=== PATIENT | female | born 1955 | race American Indian/Alaskan Native ===

== ENCOUNTER 2018-09-18 15:30 | Emergency (ER) | payer OTHER ==
[2018-09-18 17:03] VITALS: BMI 25.7
[2018-09-18] MEDS ORDERED: Lidocaine 5% Patch TD STA (17:08)
[2018-09-18 17:56] VITALS: RESP 18; TEMP 98.3; O2SAT 100
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
[2018-09-18 18:51] VITALS: PULSE 59
[2018-09-18 20:51] VITALS: BP 134/75
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
== END 2018-09-18 21:00 | disposition home or self-care (01) ==
LOC: MERGE 15:30 → ED 15:30
DX: M54.5 Low back pain (principal); M25.552 Pain in left hip; T14.8XXA Other injury of unspecified body region, initial encounter; V79.9XXA Bus occupant (driver) (passenger) injured in unspecified traffic accident, initial encounter